=== PATIENT | female | born 1970 | race Caucasian/White ===

== ENCOUNTER → 2020-06-16 | Outpatient (CLI) | payer OTHER ==
[~2020-06-16] MED LIST: ESCITALOPRAM OX10 MG PO; OXYC-325 PO; SUMA100T4 PO
[2020-06-16 12:21] LABS: BASO % 1 % (0-3); EOS % 1 % (0-3); HEMATOCRIT 41.7 % (36.0-47.0); HEMOGLOBIN 14.1 g/dL (12.0-15.5); LYMPH # 0.9 x10^3/uL (1.0-4.8); LYMPH % 19 % (24-48); MEAN CORPUSCULAR HEMOGLOBIN 30 pg (25-35); MEAN CORPUSCULAR HGB CONC 34 g/dL (31-37); MEAN CORPUSCULAR VOLUME 90 fL (79-100); MONO # 0.4 x10^3/uL (0.0-1.1); MONO % 8 % (0-9); NEUT # 3.2 x10^3/uL (1.8-7.7); NEUT % 71 % (31-73); PLATELET COUNT 317 x10^3/uL (140-400); RED BLOOD COUNT 4.65 x10^6/uL (3.50-5.40); RED CELL DISTRIBUTION WIDTH 12.7 % (11.5-14.5); WHITE BLOOD COUNT 4.6 x10^3/uL (4.0-11.0)
[2020-06-16 12:24] LABS: BILIRUBIN,URINE NEGATIVE (NEG); CLARITY,URINE CLEAR; COLOR,URINE YELLOW; NITRITE,URINE NEGATIVE (NEG); PROTEIN,URINE NEGATIVE (NEG-TRACE); UROBILINOGEN,URINE 0.2 mg/dL (0.2 mg/dL)
[2020-06-16 12:35] LABS: BACTERIA,URINE FEW /HPF (0-FEW); RBC,URINE OCC /HPF (0-2)
[2020-06-16 12:38] LABS: ALBUMIN 3.9 g/dL (3.4-5.0); CALCIUM 8.9 mg/dL (8.5-10.1); CREATININE 0.8 mg/dL (0.6-1.0); GFR 76.2; POTASSIUM 3.8 mmol/L (3.5-5.1); TOTAL BILIRUBIN 0.6 mg/dL (0.2-1.0)
== END ==
LOC: SURGPAT 11:31
PROVIDERS: ATTEND Obstetrics & Gynecology
DX: Z01.818 Encounter for other preprocedural examination (principal); R82.90 Unspecified abnormal findings in urine
CPT/HCPCS: 36415; 80053; 81001; 85025; 87086

== ENCOUNTER → 2020-06-19 | Outpatient (CLI) | payer OTHER ==
[~2020-06-19] MED LIST changes: -OXYC-325 PO
== END ==
LOC: LAB 12:02
PROVIDERS: ATTEND Obstetrics & Gynecology
DX: Z01.812 Encounter for preprocedural laboratory examination (principal); Z20.822 Contact with and (suspected) exposure to COVID-19
CPT/HCPCS: U0003

== ENCOUNTER 2020-06-22 06:52 | Observation (INO) | payer OTHER ==
[2020-06-22] VITALS (10 sets, daily range): BP systolic 98–114; BP diastolic 53–71
[~2020-06-22] VITALS: Ht 188 cm; Wt 92.2 kg
[~2020-06-22 06:52] MED LIST changes: +HYDROmorphone 2 MG/ML VIAL IVP PRN; +IV RINGERS,LACTATED 1000ML 1,000 ML IV SCH; +MORPHINE SULFATE 2 MG/ML VIAL. IVP PRN; +PROCHLORPERAZINE 10 MG/2 ML VIAL. IVP PRN; +fentaNYL PF VIAL 100 MCG/2 ML VIAL IVP PRN
[2020-06-22] MEDS ORDERED: INDIGOTINDISULFONATE SODIUM 40 MG/5 ML AMPUL. ONE (07:22)
[2020-06-22] MEDS ORDERED: ESTROGENS, CONJ VAGINAL CREAM 30GM TUBE. ONE (07:22)
[2020-06-22] MEDS ORDERED: BUPIVACAINE-EPI 0.25% 30 ML VIAL KIT. ONE (07:22)
[2020-06-22] MEDS ORDERED: ROCURONIUM 50 MG/5 ML VIAL. ONE (08:05)
[2020-06-22] MEDS ORDERED: fentaNYL PF VIAL 100 MCG/2 ML VIAL ONE ×3 (08:06→10:53)
[2020-06-22] MEDS ORDERED: MIDAZOLAM HCL/PF 2 MG/2 ML VIAL. ONE (08:06)
[2020-06-22] MEDS ORDERED: SUCCINYLCHOLINE 200 MG/10 ML VIAL. ONE (08:08)
[2020-06-22] MEDS ORDERED: GLYCOPYRROLATE 1 MG/5 ML VIAL. ONE (08:47)
[2020-06-22] MEDS ORDERED: NEOSTIGMINE METHYLSULFATE 5 MG/5 ML SYRINGE. ONE (08:52)
[2020-06-22] MEDS ORDERED: PROPOFOL 10 MG/ML (20ML) VIAL. IV ONE (08:56)
[2020-06-22] MEDS ORDERED: LIDOCAINE 2% PF 5 ML VIAL. ONE (08:57)
[2020-06-22] MEDS ORDERED: DEXAMETHASONE SOD PHOS 20 MG/5 ML VIAL. ONE (08:57)
[2020-06-22] MEDS ORDERED: ONDANSETRON PF 4 MG/2 ML VIAL. ONE (08:57)
[2020-06-22] MEDS ORDERED: SEVOFLURANE > 120 MINUTES. IH ONE (09:27)
[2020-06-22] MEDS ORDERED: KETOROLAC 30 MG/ML VIAL. ONE (10:18)
[2020-06-22] MEDS ORDERED: SIMETHICONE 80 MG TAB.CHEW PO PRN (10:30)
[2020-06-22] MEDS ORDERED: HYDROcodone/APAP 5/325MG 1 TAB TABLET PO PRN (10:30)
[2020-06-22] MEDS ORDERED: NALOXONE 0.4 MG/ML VIAL. IV PRN (10:30)
[2020-06-22] MEDS ORDERED: LACTULOSE 20 GM/30 ML SOLUTION. PO PRN (10:30)
[2020-06-22] MEDS ORDERED: MORPHINE SULFATE 2 MG/ML VIAL. IV PRN (10:30)
[2020-06-22] MEDS ORDERED: KETOROLAC 30 MG/ML VIAL. IVP PRN (10:30)
[2020-06-22] MEDS ORDERED: CALCIUM CARBONATE 500 MG TAB.CHEW PO PRN (10:30)
[2020-06-22] MEDS ORDERED: ZOLPIDEM 5 MG TABLET. PO PRN (10:30)
[2020-06-22] MEDS ORDERED: ONDANSETRON PF 4 MG/2 ML VIAL. IV PRN (10:30)
[2020-06-22] MEDS ORDERED: 0.9 % SODIUM CHLORIDE 10 ML DISP.SYRIN. IV PRN (10:30)
[2020-06-22] MEDS ORDERED: diphenhydrAMINE HCL 25 MG CAPSULE PO PRN (10:30)
[2020-06-22] MEDS ORDERED: MAG HYDROX/ALUMINUM HYD/SIMETH 30 ML ORAL.SUSP PO PRN (10:30)
[2020-06-22] MEDS ORDERED: MAGNESIUM HYDROXIDE 2,400 MG/30 ML ORAL.SUSP. PO PRN (10:30)
[2020-06-22] MEDS ORDERED: diphenhydrAMINE 50 MG/ML VIAL IV PRN (10:30)
--- NOTE | 2020-06-22 10:42 | PDOC ---
BRIEF OPERATIVE NOTE Date: Jun 22, 2020 Pre-Op Diagnosis menorrhagia, pelvic pain, fibroid uterus Post-Op Diagnosis same Procedure Performed LAVH/bilateral salpingectomy Surgeon Dr. Aleta Lua Interior Design Principal Donna WALLACE Anesthesiologist Dr. Vee Anesthesia Type: General Blood Loss 50cc IV Fluid 800cc Urine Output 200cc clear via levine Specimens Obtained cervix, uterus, bilateral tubes Findings small RV uterus, normal bilateral tubes and ovaries, normal appendix Complications none Operative Note [id number] ALETA LUA MD Jun 22, 2020 10:42
[2020-06-22] MEDS: fentaNYL PF VIAL 100 MCG/2 ML VIAL IVP PRN ×2 (10:56→11:05)
--- NOTE | 2020-06-22 11:36 | OP ---
DATE OF SURGERY: 06/22/2020 PREOPERATIVE DIAGNOSES: Menorrhagia, fibroids uterus, pelvic pain. POSTOPERATIVE DIAGNOSES: Menorrhagia, fibroids uterus, pelvic pain. PROCEDURE: Laparoscopic-assisted vaginal hysterectomy with bilateral salpingectomy. SURGEON: Arleen Lua MD FIXTURE BUILDER: MADISON Schroeder. ANESTHESIOLOGIST: Dr. Vee. ANESTHESIA: General. ESTIMATED BLOOD LOSS: 50 mL. URINE OUTPUT: 200 mL, clear via Ashton. IV FLUIDS: 800 mL of Crystalloid. SPECIMENS: Cervix, uterus, bilateral tubes. FINDINGS: She had a small retroverted uterus, normal bilateral tubes and ovaries. Normal grossly appendix and right upper quadrant. COMPLICATIONS: None. DESCRIPTION OF PROCEDURE: This patient was taken to the operating room where general anesthesia was placed. The patient was placed in dorsal lithotomy position in Sandip stirrups. The patient's abdomen and vagina were both prepped and draped in the normal sterile fashion and a Ashton catheter had been inserted under sterile technique. Upon my arrival, a timeout was performed. Once everyone agreed on the patient, the site, the procedure, antibiotics, the procedure was initiated. A bivalve speculum was placed in the patient's vagina. A single-tooth tenaculum was used to grasp the anterior lip of the cervix. 12 mL of 0.25% Marcaine with epinephrine was used to circumferentially inject around the cervix for both hemodissection and hemostatic purposes later. The Valtchev uterine manipulator was placed through the endocervical os, locked on the single tooth tenaculum and the bivalve speculum was then removed. Top gloves were discarded and changed. Attention was then turned to the abdomen where a small infraumbilical skin incision was made with the scalpel. A curved Elham was used to dissect through the subcuticular layer to the fascia. Prior to making the incision, she was injected with 0.25% Marcaine here as well. Then, making the incision, then placing the 5 mm Visiport in under direct visualization. Opening patient pressure was 3 mmHg. Carbon dioxide gas was used to appropriately insufflate the abdominal cavity to maintain a pressure of 15 mmHg. The patient was placed in Trendelenburg position. Right and left lower quadrant ports were placed after transilluminating the abdominal wall, finding an area clear of any vasculature, injecting with 0.25% Marcaine with epinephrine, making a small incision and placing the 5 mm disposable atraumatic trocars in under direct visualization, 4-5 mL of air was placed in the trocar cuff. The camera was then moved laterally to one of the ports to look at the umbilical port. Once it was in place, it was also insufflated with the 4-5 mL of air in the trocar cuff. Initial inspection revealed grossly normal bowel, grossly normal right upper quadrant, grossly normal appendix, small retroverted uterus, normal bilateral tubes and ovaries. The patient wished to keep ovaries if they were normal. So, we did just the bilateral salpingectomy, so the left tube and ovary were elevated going under the tube above the ovary, doing a salpingectomy with the LigaSure, then crossing the left uteroovarian pedicle and the left round ligament. This was done exactly the same on the right side, elevating the right tube and ovary, staying above the ovary, below the tube, doing a salpingectomy with the LigaSure, cauterizing and cutting, then crossing the right uteroovarian pedicle and the right round ligament. The uterus was pushed cephalad to the head of the bed. The bladder flap was grasped with the Maryland and the monopolar hook was used to gently cut crossed sharply incising the bladder flap and then gently pulling it down and creating the bladder flap. Once this was done, the uterine vessels on the left side were obtained going through the cardinal and broad ligaments, hugging the cervix, watching it bulge out posteriorly down to the level of the uterosacral. On the right side, getting the uterine vessels and then staying inside that pedicle and going through the cardinal and broad ligaments on the posterior side hugging the posterior cervix, going down through the cardinal and broad ligaments on this side as well. Once the uterus was completely free and blanched, all instruments were removed from the abdomen and attention was turned vaginally. The single tooth and Valtchev were removed. A weighted speculum was placed in the patient's vagina. Thyroid Sydni clamps were placed on the anterior and posterior lips of the cervix respectively. A scalpel was used to make a circumferential incision in the cervix. The anterior bladder was gently pushed up with the tip of the plastic tip of the anchor section and the bladder was peeled off from the cervix beneath. The posterior cul-de-sac with the cervix elevated was sharply entered with the curved Land scissors. A #0 Vicryl stitch was used to secure the posterior peritoneum here to the vaginal cuff and it was tagged with a curved Elham clamp. The needle was cut and passed off. The short weighted vaginal speculum was removed and replaced with the long weighted Ayse speculum now in the posterior cul-de-sac. An open Ray-Randall 4 x 4 was used to gently push up the anterior bladder peritoneum off the remaining cervix and the anterior cul-de-sac was digitally and bluntly entered. The Ray-Randall was removed and passed back to the table and the curved Dean was placed in the anterior cul-de-sac. At this point, curved James clamps x 2 were placed on the patient's left uterosacral ligament where they were doubly clamped with curved James's, cut with curved Land scissors and suture ligated x 2 with 0 Vicryl. The second one was taken through the vaginal cuff securing uterosacral ligament to the vaginal cuff, tagging it with a straight Elham clamp. Needle was cut and passed off. This was done exactly the same on the patient's right side, double clamping the uterosacrals with curved James's, cutting with curved Land scissors, suture ligating x 2 with 0 Vicryl, taking the second one through the vaginal cuff securing uterosacral ligament to the vaginal cuff, tagging it with a straight Elham clamp and cutting and passing the needle off. The remaining pedicles on both sides were delineated with the curved mixture and the vaginal LigaSure Max was used to cauterize and cut the remaining pedicle on both sides. This completely freed up the specimen cervix, uterus, bilateral tubes were passed off in total for permanent pathology. The long Allis was used to grasp the anterior bladder peritoneum. A sponge stick was used to examine the pedicles. There was no rundown at all. The left side was dry. The right side had some slight oozing that I used a burlisher to grasp. I took the vaginal LigaSure behind this and cauterized it with excellent results. There was no active bleeding. The long speculum was removed from the cul-de-sac and replaced with the short weighted vaginal speculum and at this point, a 2-0 Vicryl was taken through the anterior bladder peritoneum, left uterosacral ligament, posterior peritoneum and right uterosacral ligament, thus closing the peritoneum in a pursestring like fashion. The right and left uterosacral tags were clipped. At this point, the cuff was closed in an anterior to posterior running locked fashion with a full length 2-0 Vicryl and it was tied to that posterior cuff tag. The cuff was completely hemostatic and looked great and dry. So at this point, all instruments were removed from the vagina. All sponge, lap and needle counts had been correct x 2 by OR personnel. All gloves were discarded and changed and attention was turned back above for a second look. The patient was placed back in Trendelenburg. Gas was reinsufflated, overhead lights were dimmed. Copious irrigation revealed hemostasis. Tisseel was placed over the cuff with excellent results. Once this was done, the pericolic gutters were clear. The right upper quadrant was still normal. The cuff was good. There was initially when I put the Tisseel some slight oozing at the left side. I just used the Maryland to just gently close it and put pressure on it and seal it and it worked great, so I took the air of the trocar cuff, the 4-5 mL of air out, we will let some of the gas out of the abdomen watch the cuff. It remained hemostatic, so the right and left lower quadrant ports were removed under direct visualization. These too were hemostatic. Again, we looked at the cuff. Again, it remained completely dry and hemostatic with nothing dripping or welling up or anything and the Tisseel was dry and clear. So at this point and that course, she kept both ovaries and the gas was released from the umbilical port. All three port sites were closed with a 4-0 Monocryl in a subcutaneous fashion. Once this was done, the patient was awakened from anesthesia and brought to recovery room in stable condition. ARLEEN LUA MD DR: NICKIE/elpidio JOB#: [id number] / [id number]
--- NOTE | 2020-06-22 11:48 | NUR ---
Pt arrived to room 454 in stable condition from PACU. Patient A&O and educated on unit policies and procedures. Call light within reach. Will continue to monitor.
[2020-06-22] MEDS: oxyCODONE/APAP 5/325 1 TAB TABLET PO PRN (21:23)
[2020-06-23 02:38] VITALS: BP 115/64
[2020-06-23 06:20] VITALS: BP 114/65
[2020-06-23] MEDS: oxyCODONE/APAP 5/325 1 TAB TABLET PO PRN (06:25)
[2020-06-23 08:20] LABS: CREATININE 0.7 mg/dL (0.6-1.0); GFR 88.9
--- NOTE | 2020-06-23 08:44 | PDOC ---
SURGICAL PROGRESS NOTE DATE: 06/23/20 TIME: 08:38 Subjective Doing ok. Ate full meal last night. Voiding without catheter. This am demetrio dizzy after 2 percocets. Scant VB with wiping only. Vital Signs Vital Signs Date Time Temp Pulse Resp B/P (MAP) Pulse Ox O2 Delivery O2 Flow Rate FiO2 06/23/20 06:25 18 97 Room Air 06/23/20 06:20 98.4 78 114/65 (81) 98.4 06/22/20 11:22 6 I&O Intake and Output 06/23/20 07:00 Intake Total 3050 ml Output Total 1150 ml Balance 1900 ml Intake Oral 1200 ml IV Total 1850 ml Output Urine Total 1100 ml Estimated Blood Loss 50 ml PATIENT HAS A LAGOS: No General: Alert, Oriented X3, Cooperative, No acute distress HEENT: Atraumatic Heart: Regular rate Abdomen: Soft, No tenderness, Other (all 3 port sites c/d/i) Extremities: No clubbing, No cyanosis, No edema Skin: No rashes, No breakdown, No significant lesion Neuro: Normal speech Psych/Mental Status: Mental status NL, Mood NL Labs Laboratory Tests Test 06/22/20 07:25 06/23/20 07:00 Bedside Urine HCG, Qualitative Hcg negative (Negative) Hematocrit 35.6 % (36.0-47.0) Sodium Level 141 mmol/L (136-145) Potassium Level 4.0 mmol/L (3.5-5.1) Chloride Level 107 mmol/L (98-107) Carbon Dioxide Level 27 mmol/L (21-32) Anion Gap 7 (6-14) Blood Urea Nitrogen 10 mg/dL (7-20) Creatinine 0.7 mg/dL (0.6-1.0) Estimated GFR (Cockcroft-Gault) 88.9 Glucose Level 92 mg/dL (70-99) Calcium Level 8.0 mg/dL (8.5-10.1) Laboratory Tests Test 06/23/20 07:00 Hematocrit 35.6 % (36.0-47.0) Sodium Level 141 mmol/L (136-145) Potassium Level 4.0 mmol/L (3.5-5.1) Chloride Level 107 mmol/L (98-107) Carbon Dioxide Level 27 mmol/L (21-32) Anion Gap 7 (6-14) Blood Urea Nitrogen 10 mg/dL (7-20) Creatinine 0.7 mg/dL (0.6-1.0) Estimated GFR (Cockcroft-Gault) 88.9 Glucose Level 92 mg/dL (70-99) Calcium Level 8.0 mg/dL (8.5-10.1) I have reviewed the following labs/vitals/nursing Cardiovascular: No pertinent hx Pulmonary: No pertinent hx GI: No pertinent hx Heme/Onc: No pertinent hx Psych: No pertinent hx Rheumatologic: No pertinent hx Infectious disease: No pertinent hx ENT: No pertinent hx Renal/: No pertinent hx Endocrine: No pertinent hx Dermatology: No pertinent hx Assessment/Plan POD#1 s/p LAVH/bilateral salpingectomy Routine PO care d/c to home later today AFVSS and hgb/lytes all good this am keep scheduled followup with me as scheduled percocet-written ok for OTC ibuprofen also NO driving for one week and while on narcotic pain meds NPV x 6 weeks light/limited activity x 2 weeks call or return sooner for any other questions or concerns not limited to but including pain unrelieved with pain meds, increased or unexplained VB or T>100.4 Justicifation of Admission Dx: Justifications for Admission: Justification of Admission Dx: Yes ARLEEN ZUÑIGA MD Jun 23, 2020 08:44
--- NOTE | 2020-06-23 08:46 | PDOC3 ---
Discharge Summary Visit Information Date of Admission: Jun 22, 2020 Date of Discharge: Jun 23, 2020 Final Diagnosis fibroids Brief Hospital Course Allergies Allergies Coded Allergies Type Severity Reaction Last Updated Verified No Known Drug Allergies 06/22/20 No Vital Signs Vital Signs Date Time Temp Pulse Resp B/P (MAP) Pulse Ox O2 Delivery O2 Flow Rate FiO2 06/23/20 06:25 18 97 Room Air 06/23/20 06:20 98.4 78 114/65 (81) 98.4 06/22/20 11:22 6 Lab Results Laboratory Tests Test 06/22/20 07:25 06/23/20 07:00 Bedside Urine HCG, Qualitative Hcg negative (Negative) Hematocrit 35.6 % (36.0-47.0) Sodium Level 141 mmol/L (136-145) Potassium Level 4.0 mmol/L (3.5-5.1) Chloride Level 107 mmol/L (98-107) Carbon Dioxide Level 27 mmol/L (21-32) Anion Gap 7 (6-14) Blood Urea Nitrogen 10 mg/dL (7-20) Creatinine 0.7 mg/dL (0.6-1.0) Estimated GFR (Cockcroft-Gault) 88.9 Glucose Level 92 mg/dL (70-99) Calcium Level 8.0 mg/dL (8.5-10.1) Laboratory Tests Test 06/23/20 07:00 Hematocrit 35.6 % (36.0-47.0) Sodium Level 141 mmol/L (136-145) Potassium Level 4.0 mmol/L (3.5-5.1) Chloride Level 107 mmol/L (98-107) Carbon Dioxide Level 27 mmol/L (21-32) Anion Gap 7 (6-14) Blood Urea Nitrogen 10 mg/dL (7-20) Creatinine 0.7 mg/dL (0.6-1.0) Estimated GFR (Cockcroft-Gault) 88.9 Glucose Level 92 mg/dL (70-99) Calcium Level 8.0 mg/dL (8.5-10.1) Brief Hospital Course Ms. Miller is a 49 old female who presented with symptomatic fibroids desiring definitive therapy. She underwent an LAVH/bilateral salpingectomy yesterday without complications. She has had an unremarkable postoperative course. Only complaint this am is a migraine, which she has and takes meds for . Scant VB, tolerating regular diet, ambulating well and voiding without catheter. AFVSS will dc to home later today. Assessment Assessment POD#1 s/p LAVH/bilateral salpingectomy Routine PO care d/c to home later today AFVSS and hgb/lytes all good this am keep scheduled followup with me as scheduled percocet-written ok for OTC ibuprofen also NO driving for one week and while on narcotic pain meds NPV x 6 weeks light/limited activity x 2 weeks call or return sooner for any other questions or concerns not limited to but including pain unrelieved with pain meds, increased or unexplained VB or T>100.4 Discharge Information Condition at Discharge: Stable Follow Up: Weeks Disposition/Orders: D/C to Home Scheduled Escitalopram Oxalate (Escitalopram Oxalate) 10 Mg Tablet, 1 TAB PO DAILY for depression, #30 Ref 3 (Reported) Entered as Reported by: RJ CORTES on 06/16/201210 Last Taken: Unknown Dose on 06/21/20 Last Action: Last Taken Edited on 06/22/20 0732 by JUAN ALVA Scheduled PRN Sumatriptan Succinate (Sumatriptan Succinate) 100 Mg Tablet, 100 MG PO ONCE PRN for MIGRAINE HEADACHE, (Reported) Entered as Reported by: RJ CORTES on 06/16/201209 Last Taken: Unknown Dose on 06/14/20 Last Action: Continued on 06/23/20 0843 by RAVINDER DELGADO Patient Instructions Patient Instructions POD#1 s/p LAVH/bilateral salpingectomy Routine PO care d/c to home later today AFVSS and hgb/lytes all good this am keep scheduled followup with me as scheduled percocet-written ok for OTC ibuprofen also NO driving for one week and while on narcotic pain meds NPV x 6 weeks light/limited activity x 2 weeks call or return sooner for any other questions or concerns not limited to but including pain unrelieved with pain meds, increased or unexplained VB or T>100.4 Justicifation of Admission Dx: Justifications for Admission: Justification of Admission Dx: Yes ARLEEN ZUÑIGA MD Jun 23, 2020 08:46
[2020-06-23 10:23] VITALS: BP 121/69
[2020-06-23] MEDS ORDERED: OXYC-325 PO (10:28)
--- NOTE | 2020-06-23 11:03 | NUR ---
C/o migraine headache and not much of appetite. Gave Imitrex po. Cont. monitor.
--- NOTE | 2020-06-23 11:06 | NUR ---
Discharge instructions given with prescription. Answered questions and concerns. Verbalized understanding. Headache is gone and feeling better. Waiting for ride home.
--- NOTE | 2020-06-23 11:24 | NUR ---
Pt discharged home accompanied by friend. Escorted out by w/c.
--- NOTE | 2020-06-27 09:08 | PATHOLOGY ---
[facility] Accession Number: [id number] . 01 Material submitted: . uterus - UTERUS CERVIX AND BILATERAL TUBES. Modifiers: bilateral . 01 Clinical history: . LAVH . 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 - Chronic cervicitis, focal. - Inactive/weakly proliferative endometrium. - Adenomyosis, uterine corpus, subbasal. - Right paratubal cyst. - Congestion of bilateral fallopian tubes. (JPM:ute; 06/26/2020) S 06/26/2020 1728 Local . 02 Comment: There is no evidence of malignancy. (JPM:ute; 06/26/2020) . 02 Electronically signed: . Nj Castro MD, Pathologist NPI- [id number] . 01 Gross description: . Fixative: Formalin Labeled: Uterus, cervix, bilateral tubes Specimen received: Uterus and attached fallopian tubes Uterus weight: 76 g Uterus: 8.3 x 5.5 x 4.0 cm Serosa: [place]-smith, smooth Ectocervix: Pale gunderson, smooth Cervical os: Slit-like/patent, measuring 1.0 cm Endocervical canal: 2.5 cm Endometrial cavity: 3.8 x 1.9 cm Endometrium: [place]-gunderson, glistening Endometrial thickness: 0.1 cm Myometrium: [place]-pink, trabeculated Myometrium thickness: Up to 2.3 cm Lesions/abnormalities: Two intramural fibroids measuring 0.3 and 1.8 cm Left fallopian tube: 3.0 gm, fimbriated, 5.2 cm in length, 0.5 cm in diameter Left fallopian tube appearance: [place]-purple Right fallopian tube: 3.0 gm, fimbriated, 5.0 cm in length, 0.5 cm in diameter Right fallopian tube appearance: [place]-purple displaying a single paratubal cyst measuring 0.6 cm . Supervisor [employer] Department sections are submitted as follows: A1 12:00 cervix A2 6:00 cervix A3 anterior endomyometrium A4 posterior endomyometrium A5 registration representative sections of fibroids A6 registration representative sections from each fallopian tube, one of which is differentially inked. (CAA; 06/23/2020) QA/[facility] 06/26/2020 1725 Local . 02 Pathologist provided ICD-10: D25.9, N72, N80.0, N83.8, N85.8 . 02 CPT . 794971 Specimen Comment: A courtesy copy of this report has been sent to [phone] Specimen Comment: Report sent to Performed at: 01 [facility] [address], [place] [id number] MD Roger Tavarez MD Phone: [phone] Performed at: 02 [facility] [address] [place], [place] [id number] MD Nj Castro MD Phone: [phone]
== END 2020-06-23 11:25 | disposition home or self-care (01) ==
LOC: SURG 06:52 → EDUNIT# 08:30 → 4 SOUTHEST 10:22
PROVIDERS: ADMIT Obstetrics & Gynecology; ATTEND Obstetrics & Gynecology
DX: N92.0 Excessive and frequent menstruation with regular cycle (principal); D25.9 Leiomyoma of uterus, unspecified; G43.909 Migraine, unspecified, not intractable, without status migrainosus; N85.4 Malposition of uterus
CPT/HCPCS: 36415; 58552; 80048; 81025; 85014; 86850; 86900; 86901; 88307; 96361; 96374; 96375; A4314; A4364; A4930; A6219; G0378; G0379; J0330; J0690; J1100; J1885; J2250; J2405; J2704; J2710; J3010; J3480; J3490; A4452; A4657